=== PATIENT | male | born 1970 | race Caucasian/White ===

== ENCOUNTER 2020-03-29 12:12 | Emergency (ER) | payer OTHER ==
[~2020-03-29 12:12] MED LIST: BACTRIM DS TAB1 EACH PO
[2020-03-29] MEDS ORDERED: IBUPROFEN800 MG PO (12:23)
[2020-03-29] MEDS ORDERED: KEFLEX250 MG PO (12:23)
[2020-03-29] MEDS ORDERED: BACTRIM DS TAB1 EACH PO (12:23)
== END 2020-03-29 15:08 | disposition home or self-care (01) ==
LOC: FER 12:12
DX: L02.413 Cutaneous abscess of right upper limb (principal); F15.10 Other stimulant abuse, uncomplicated; F17.210 Nicotine dependence, cigarettes, uncomplicated
CPT/HCPCS: 87070; 87077; 87186; 87205

== ENCOUNTER 2021-01-29 22:43 | Day surgery (SDCO) | payer OTHER ==
[~2021-01-29] VITALS: Ht 177.8 cm; Wt 96.6 kg
[~2021-01-29 22:43] MED LIST changes: +IBUPROFEN800 MG PO; +KEFLEX250 MG PO
[2021-01-29 23:49] LABS: CORONAVIRUS 2019 SARS-COV-2 NEGATIVE (NEGATIVE); INFLUENZA A NAA NEGATIVE (NEGATIVE)
[2021-01-29 23:54] LABS: BASOPHIL 0.5 % (0-2); EOSINOPHIL 1.8 % (0-5); HCT 44.5 % (42.0-52.0); LYMPHOCYTE 29.8 % (15-48); MCH 27.1 pg (25.0-31.0); MCHC 31.5 g/dL (32.0-36.0); MCV 86.1 fL (78.0-100.0); MONOCYTE 7.5 % (0-12); MPV 10.8 fL (6.0-9.5); NEUTROPHIL 60.2 % (41-80); NRBC 0; PLT 258 K/uL (150-400); RBC 5.17 M/uL (4.70-6.00); RDW 14.1 % (11.5-14.0); WBC 9.3 K/uL (4.0-10.5)
[2021-01-30 00:12] LABS: LACTIC ACID 0.8 mmol/L (0.4-1.9)
[2021-01-30 00:19] LABS: ALBUMIN 3.2 g/dL (3.4-5.0); BILIRUBIN - TOTAL 0.4 mg/dL (0.2-1.0); BUN/CREAT RATIO (CALC) 16.9 RATIO; CREATININE 1.36 mg/dL (0.67-1.17); GLOBULIN (CALCULATION) 3.7 g/dL; TOTAL PROTEIN 6.9 g/dL (6.4-8.2)
[2021-01-30 03:25] LABS: AMPHETAMINES NEGATIVE (NEGATIVE); BARBITURATES NEGATIVE (NEGATIVE); ECSTASY (MDMA) NEGATIVE (NEGATIVE); MARIJUANA (THC) NEGATIVE (NEGATIVE); METHADONE NEGATIVE (NEGATIVE); OPIATES NEGATIVE (NEGATIVE)
[2021-01-30 03:26] LABS: OXYCODONE NEGATIVE (NEGATIVE)
--- NOTE | 2021-01-30 07:26 | NUR ---
WAS IN THE [facility] [address] AND LAB CAME TO ME TO EXPLAIN THAT 206 WAS GOING CRAZY. I WENT INTO THE ROOM TO ASK WHAT WAS WRONG, HE JUMPED UP AND STATED THAT HE WAS HAVING A MUSCLE SPASM, HE TOOK OFF HIS TELEMATRY AND STATED THAT IT NEEDED TO COME OFF. I WAS STANDING THERE HE TOLD ME TO GET OUT OF HIS FING FACE AND TO GET OUT OF THE ROOM. FRANKLIN AND PITO WERE MY WITNESSES TO THIS. I SHUT THE DOOR AND TOLD EVERYONE TO STAY OUT UNTIL HE CALMS DOWN. TOLD CHARGE AND HOUSE ABOUT THE SITUATION. ALSO INFORMED DR FUNK
--- NOTE | 2021-01-30 09:14 | NUR ---
WENT INTO PATIENT ROOM R/T PATIENT REFUSING TREATMENT. PATIENT WANTED THE "PAPER TO SIGN OUT," I ATTEMPTED TO EXPLAIN TO THE PATIENT THAT HE WOULD BE AT RISK FOR A MASSIVE HEART ATTACK, OR IF NOT PROPERLY EXAMINED BY OUR MEDICAL TEAM, PATIENT REPEATED TO INTERUPT ME SAYING "AINT NOTHING WRONG WITH MY HEART, I DIDN'T HAVE NO HEART ATTACK, I'M LEAVIG THIS PLACE." I REMOVED PATIENTS IV, PATIENT SIGNED AMA PAPERS AND WAS AMBULATORY FROM ROOM 206 WITH NO DISTRESS
--- NOTE | 2021-01-30 17:16 | NUR ---
01/30/21 Patient left AMA.
== END 2021-01-30 09:11 | disposition left against medical advice (07) ==
LOC: FER 22:43 → FMS 01-30 04:17
PROVIDERS: Emergency Medicine Emergency Medical Services; ADMIT Hospitalist
DX: I11.0 Hypertensive heart disease with heart failure (principal); I50.1 Left ventricular failure, unspecified; F17.210 Nicotine dependence, cigarettes, uncomplicated; F15.10 Other stimulant abuse, uncomplicated; Z20.822 Contact with and (suspected) exposure to COVID-19; I21.4 Non-ST elevation (NSTEMI) myocardial infarction; R00.0 Tachycardia, unspecified
CPT/HCPCS: 36415; 71045; 71275; 80053; 80305; 82728; 83605; 83880; 84484; 85025; 85379; 86140; 87040; 93005; 94640; 94664; 96372; G0378; J1650; J1940; J2543; J3360; J7040; Q9967; U0002

== ENCOUNTER 2021-02-03 11:29 | Inpatient (IN) | payer OTHER ==
[~2021-02-03] VITALS: Ht 177.8 cm; Wt 98.9 kg
[2021-02-03 12:45] LABS: BASOPHIL 0.5 % (0-2); EOSINOPHIL 1.4 % (0-5); HCT 46.2 % (42.0-52.0); HGB 14.6 g/dl (13.2-18.0); LYMPHOCYTE 27.4 % (15-48); MCH 27.4 pg (25.0-31.0); MCHC 31.6 g/dL (32.0-36.0); MCV 86.8 fL (78.0-100.0); MONOCYTE 7.8 % (0-12); NEUTROPHIL 62.7 % (41-80); NRBC 0; PLT 285 K/uL (150-400); RBC 5.32 M/uL (4.70-6.00); RDW 14.5 % (11.5-14.0)
[2021-02-03 12:49] LABS: INR 1.07 (0.9-1.2); PROTHROMBIN TIME 13.3 SECONDS (11.8-13.4)
[2021-02-03 12:50] LABS: PTT 29.6 SECONDS (24.4-34.7)
[2021-02-03 13:10] LABS: ALBUMIN 3.2 g/dL (3.4-5.0); BILIRUBIN - TOTAL 0.3 mg/dL (0.2-1.0); CREATININE 1.12 mg/dL (0.67-1.17); POTASSIUM 4.7 mmol/L (3.5-5.1); TOTAL PROTEIN 7.2 g/dL (6.4-8.2)
[2021-02-03 13:19] LABS: CORONAVIRUS 2019 SARS-COV-2 NEGATIVE (NEGATIVE); INFLUENZA A NAA NEGATIVE (NEGATIVE)
[2021-02-03 19:18] LABS: ECSTASY (MDMA) NEGATIVE (NEGATIVE); MARIJUANA (THC) NEGATIVE (NEGATIVE); METHADONE NEGATIVE (NEGATIVE); OPIATES NEGATIVE (NEGATIVE)
[2021-02-03 19:19] LABS: AMPHETAMINES POSITIVE (NEGATIVE); BARBITURATES NEGATIVE (NEGATIVE); OXYCODONE NEGATIVE (NEGATIVE)
[2021-02-04 07:13] LABS: BASOPHIL 0.6 % (0-2); EOSINOPHIL 1.6 % (0-5); HCT 49.2 % (42.0-52.0); HGB 15.9 g/dl (13.2-18.0); LYMPHOCYTE 26.9 % (15-48); MCH 27.2 pg (25.0-31.0); MCHC 32.3 g/dL (32.0-36.0); MCV 84.2 fL (78.0-100.0); MONOCYTE 7.6 % (0-12); NRBC 0; PLT 294 K/uL (150-400); RBC 5.84 M/uL (4.70-6.00); RDW 14.4 % (11.5-14.0); WBC 10.8 K/uL (4.0-10.5)
[2021-02-04 07:55] LABS: ALBUMIN 3.1 g/dL (3.4-5.0); BILIRUBIN - TOTAL 0.6 mg/dL (0.2-1.0); BUN/CREAT RATIO (CALC) 16.4 RATIO; CREATININE 1.22 mg/dL (0.67-1.17); GLOBULIN (CALCULATION) 3.5 g/dL; POTASSIUM 4.3 mmol/L (3.5-5.1); TOTAL PROTEIN 6.6 g/dL (6.4-8.2)
--- NOTE | 2021-02-04 14:15 | NUR ---
[facility] will accept patient at discharge. They prefer a 24 hour notice of discharge. [facility] will provide transportation.
[2021-02-05 07:27] LABS: BASOPHIL 0.6 % (0-2); EOSINOPHIL 1.7 % (0-5); HCT 53.9 % (42.0-52.0); HGB 17.3 g/dl (13.2-18.0); LYMPHOCYTE 24.3 % (15-48); MCH 26.8 pg (25.0-31.0); MCHC 32.1 g/dL (32.0-36.0); MCV 83.4 fL (78.0-100.0); MONOCYTE 7.7 % (0-12); MPV 10.7 fL (6.0-9.5); NEUTROPHIL 65.5 % (41-80); NRBC 0; PLT 340 K/uL (150-400); RBC 6.46 M/uL (4.70-6.00); RDW 14.6 % (11.5-14.0); WBC 12.5 K/uL (4.0-10.5)
[2021-02-05 07:55] LABS: ALBUMIN 3.1 g/dL (3.4-5.0); BILIRUBIN - TOTAL 0.7 mg/dL (0.2-1.0); BUN/CREAT RATIO (CALC) 18.1 RATIO; CREATININE 1.27 mg/dL (0.67-1.17); GLOBULIN (CALCULATION) 4.3 g/dL; MAGNESIUM 2.3 mg/dL (1.8-2.4); POTASSIUM 4.3 mmol/L (3.5-5.1); TOTAL PROTEIN 7.4 g/dL (6.4-8.2)
[2021-02-05 08:11] LABS: CKMB 2.1 ng/mL (0.0-3.6)
--- NOTE | 2021-02-05 10:59 | NUR ---
02/05/21 Mr. Kearney will be transferred to [facility] for a cath. ISABEL Nunes, was notified with patient's permission.
[2021-02-06 05:09] LABS: HBSAG SCREEN Negative (Negative); HEP A AB, IGM Negative (Negative); HEP B CORE AB, IGM Negative (Negative); HEP C VIRUS AB <0.1 (0.0-0.9)
[2021-02-06 05:58] LABS: BASOPHIL 0.7 % (0-2); EOSINOPHIL 2.6 % (0-5); HCT 53.7 % (42.0-52.0); HGB 17.3 g/dl (13.2-18.0); LYMPHOCYTE 29.1 % (15-48); MCH 27.6 pg (25.0-31.0); MCHC 32.2 g/dL (32.0-36.0); MCV 85.6 fL (78.0-100.0); MONOCYTE 8.5 % (0-12); MPV 10.4 fL (6.0-9.5); NEUTROPHIL 58.8 % (41-80); NRBC 0; PLT 325 K/uL (150-400); RBC 6.27 M/uL (4.70-6.00); RDW 14.6 % (11.5-14.0); WBC 12.2 K/uL (4.0-10.5)
[2021-02-06 07:02] LABS: BILIRUBIN - TOTAL 0.4 mg/dL (0.2-1.0); BUN/CREAT RATIO (CALC) 16.9 RATIO; CREATININE 1.36 mg/dL (0.67-1.17); POTASSIUM 4.8 mmol/L (3.5-5.1)
[2021-02-06 07:09] LABS: HIV SCREEN 4TH GENERATION WRFX Non Reactive (Non Reactive)
[2021-02-06] MEDS ORDERED: FUROSEMIDE 40MG40 MG PO (08:20)
[2021-02-06] MEDS ORDERED: LOPRESSOR25 MG PO (08:20)
[2021-02-06] MEDS ORDERED: ZESTRIL2.5 MG PO (08:20)
--- NOTE | 2021-02-06 08:55 | NUR ---
REPORT CALLED TO [facility] AT THIS TIME, PATIENT AWAITING EMS AT THIS TIME.
== END 2021-02-06 09:44 | disposition other institution (70) | DRG 280 ==
LOC: FER 11:29 → FMS 15:01
PROVIDERS: Emergency Medicine; Family Medicine; Internal Medicine Cardiovascular Disease; Nurse Practitioner; ADMIT Internal Medicine
DX: I11.0 Hypertensive heart disease with heart failure (principal); I21.4 Non-ST elevation (NSTEMI) myocardial infarction; I50.23 Acute on chronic systolic (congestive) heart failure; I42.9 Cardiomyopathy, unspecified; F17.210 Nicotine dependence, cigarettes, uncomplicated; Z20.822 Contact with and (suspected) exposure to COVID-19; F15.90 Other stimulant use, unspecified, uncomplicated; Z91.14 Patient's other noncompliance with medication regimen; Z98.890 Other specified postprocedural states; Z82.49 Family history of ischemic heart disease and other diseases of the circulatory system
CPT/HCPCS: 36415; 71045; 80053; 80074; 80305; 82553; 83735; 83880; 84484; 85025; 85379; 85610; 85730; 87389; 93005; 94640; 94760; J1650; J1940; U0002

== ENCOUNTER 2021-02-16 20:10 | Inpatient (IN) | payer OTHER ==
[~2021-02-16] VITALS: Ht 177.8 cm; Wt 100.8 kg
[~2021-02-16 20:10] MED LIST changes: +FUROSEMIDE 40MG40 MG PO; +LOPRESSOR25 MG PO; +ZESTRIL2.5 MG PO
[2021-02-16 20:50] LABS: BASOPHIL 0.5 % (0-2); EOSINOPHIL 1.2 % (0-5); HCT 44.6 % (42.0-52.0); HGB 13.8 g/dl (13.2-18.0); LYMPHOCYTE 26.8 % (15-48); MCHC 30.9 g/dL (32.0-36.0); MCV 87.1 fL (78.0-100.0); MONOCYTE 7.7 % (0-12); MPV 11.1 fL (6.0-9.5); NEUTROPHIL 63.4 % (41-80); NRBC 0; PLT 272 K/uL (150-400); RBC 5.12 M/uL (4.70-6.00); RDW 13.9 % (11.5-14.0); WBC 12.7 K/uL (4.0-10.5)
[2021-02-16 21:07] LABS: BUN/CREAT RATIO (CALC) 15.4 RATIO; CREATININE 1.23 mg/dL (0.67-1.17); POTASSIUM 4.5 mmol/L (3.5-5.1)
[2021-02-16 22:08] LABS: CORONAVIRUS 2019 SARS-COV-2 NEGATIVE (NEGATIVE); INFLUENZA A NAA NEGATIVE (NEGATIVE)
--- NOTE | 2021-02-17 14:38 | NUR ---
02/17/21 Patient left AMA.
--- NOTE | 2021-02-17 21:19 | NUR ---
1132: PT LEFT AMA, MD SANDHU AND TANVIR TAPIA APRN NOTIFIED, PT STATES THAT HE WANTS TO KEEP HIS APPOINTMENT WITH [facility] TO GET A SECOND OPINION ON HIS HEALTH STATUS. PT HAS BEEN EDUCATED ON THE IMPORTANCE OF NOT USING ANY ILLEGAL SUBSTANCES AND THE CRITICAL CONDITION THAT HE IS IN. PT VERBALIZED UNDERSTANDING AND ADAMANT ABOUT LEAVING, APPROPRIATE DOCUMENTS SIGNED FOR AMA. REGISTERED VETERINARY TECHNICIAN NOTIFIED OF PT AMA.
== END 2021-02-17 11:32 | disposition left against medical advice (07) | DRG 280 ==
LOC: FER 20:10 → FTCU 22:39
PROVIDERS: Nurse Practitioner Family; ADMIT Internal Medicine
DX: I11.0 Hypertensive heart disease with heart failure (principal); I50.43 Acute on chronic combined systolic (congestive) and diastolic (congestive) heart failure; I21.4 Non-ST elevation (NSTEMI) myocardial infarction; F15.10 Other stimulant abuse, uncomplicated; Z20.822 Contact with and (suspected) exposure to COVID-19; Z91.14 Patient's other noncompliance with medication regimen; I42.9 Cardiomyopathy, unspecified; F17.210 Nicotine dependence, cigarettes, uncomplicated; I25.2 Old myocardial infarction; Z98.890 Other specified postprocedural states
CPT/HCPCS: 36415; 71045; 71275; 80048; 83880; 84484; 85025; 85379; 93005; J1650; J1940; Q9967; U0002

== ENCOUNTER 2021-02-25 18:41 | Emergency (ER) | payer OTHER | END 2021-02-25 21:41 | disposition left against medical advice (07) | LOC: FER 18:41 | DX: R07.9 Chest pain, unspecified (principal); R11.0 Nausea; Z53.8 Procedure and treatment not carried out for other reasons | CPT/HCPCS: 93005 ==

== ENCOUNTER 2021-08-21 18:56 | Emergency (ER) | payer OTHER ==
[~2021-08-21 18:56] MED LIST changes: +LASIX80 MG PO
[2021-08-21 19:49] LABS: BASOPHIL 0.7 % (0-2); EOSINOPHIL 1.8 % (0-5); HCT 42.5 % (42.0-52.0); HGB 13.7 g/dl (13.2-18.0); LYMPHOCYTE 21.5 % (15-48); MCH 27.1 pg (25.0-31.0); MCHC 32.2 g/dL (32.0-36.0); MONOCYTE 9.3 % (0-12); MPV 11.1 fL (6.0-9.5); NEUTROPHIL 66.3 % (41-80); NRBC 0; PLT 205 K/uL (150-400); RBC 5.06 M/uL (4.70-6.00); RDW 15.3 % (11.5-14.0); WBC 8.3 K/uL (4.0-10.5)
[2021-08-21 20:09] LABS: ALBUMIN 2.8 g/dL (3.4-5.0); BILIRUBIN - TOTAL 0.8 mg/dL (0.2-1.0); BUN/CREAT RATIO (CALC) 15.2 RATIO; CREATININE 1.05 mg/dL (0.67-1.17); GLOBULIN (CALCULATION) 3.8 g/dL; POTASSIUM 3.6 mmol/L (3.5-5.1); TOTAL PROTEIN 6.6 g/dL (6.4-8.2)
[2021-08-21 20:31] LABS: BILIRUBIN NEGATIVE (NEGATIVE); BLOOD NEGATIVE Ery/uL (NEGATIVE); CLARITY CLEAR (CLEAR); COLOR YELLOW (YELLOW); GLUCOSE (U) 3+ mg/dL (NORMAL); LEUKOCYTES NEGATIVE Leu/uL (NEGATIVE); NITRITE NEGATIVE (NEGATIVE); PROTEIN NEGATIVE (NEGATIVE); SPECIFIC GRAVITY 1.015 (1.001-1.030); UROBILINOGEN 0.2 mg/dL (0.2-1.0)
[2021-08-21 20:37] LABS: AMPHETAMINES NEGATIVE (NEGATIVE); BARBITURATES NEGATIVE (NEGATIVE); ECSTASY (MDMA) NEGATIVE (NEGATIVE); MARIJUANA (THC) NEGATIVE (NEGATIVE); METHADONE NEGATIVE (NEGATIVE); OPIATES NEGATIVE (NEGATIVE); OXYCODONE NEGATIVE (NEGATIVE)
== END 2021-08-21 21:45 | disposition home or self-care (01) ==
LOC: FER 18:56
PROVIDERS: Internal Medicine
DX: E11.65 Type 2 diabetes mellitus with hyperglycemia (principal); F15.10 Other stimulant abuse, uncomplicated; I11.0 Hypertensive heart disease with heart failure; I50.9 Heart failure, unspecified; F17.210 Nicotine dependence, cigarettes, uncomplicated
CPT/HCPCS: 36415; 80053; 80305; 81003; 82009; 83690; 84484; 85025; 93005; J7120

== ENCOUNTER 2021-08-29 01:38 | Emergency (ER) | payer OTHER ==
[2021-08-29 03:08] LABS: BASOPHIL 0.5 % (0-2); EOSINOPHIL 0.8 % (0-5); HCT 46.2 % (42.0-52.0); HGB 14.4 g/dl (13.2-18.0); LYMPHOCYTE 28.1 % (15-48); MCH 26.8 pg (25.0-31.0); MCHC 31.2 g/dL (32.0-36.0); MCV 85.9 fL (78.0-100.0); MONOCYTE 8.1 % (0-12); MPV 10.9 fL (6.0-9.5); NEUTROPHIL 62.2 % (41-80); NRBC 0; PLT 221 K/uL (150-400); RBC 5.38 M/uL (4.70-6.00); RDW 15.5 % (11.5-14.0); WBC 10.2 K/uL (4.0-10.5)
[2021-08-29 03:36] LABS: ALBUMIN 2.8 g/dL (3.4-5.0); BILIRUBIN - TOTAL 1.2 mg/dL (0.2-1.0); BUN/CREAT RATIO (CALC) 16.7 RATIO; CREATININE 1.26 mg/dL (0.67-1.17); GLOBULIN (CALCULATION) 4.1 g/dL; POTASSIUM 3.8 mmol/L (3.5-5.1); TOTAL PROTEIN 6.9 g/dL (6.4-8.2)
[2021-08-29 04:29] LABS: CORONAVIRUS 2019 SARS-COV-2 NEGATIVE (NEGATIVE); INFLUENZA A NAA NEGATIVE (NEGATIVE)
[2021-08-29] MEDS ORDERED: VIBRAMYCIN100 MG PO (04:38)
[2021-08-29] MEDS ORDERED: PREDNISONE 20MG20 MG PO (04:38)
[2021-08-29] MEDS ORDERED: LASIX40 MG PO (04:38)
[2021-08-29] MEDS ORDERED: VENTOLIN HFA IN18 GM INH (04:38)
== END 2021-08-29 04:58 | disposition home or self-care (01) ==
LOC: FER 01:38
PROVIDERS: Internal Medicine
DX: I11.0 Hypertensive heart disease with heart failure (principal); I50.9 Heart failure, unspecified; J44.1 Chronic obstructive pulmonary disease with (acute) exacerbation; E11.9 Type 2 diabetes mellitus without complications; F17.210 Nicotine dependence, cigarettes, uncomplicated; Z20.822 Contact with and (suspected) exposure to COVID-19
CPT/HCPCS: 36415; 71045; 80053; 83880; 84145; 84484; 85025; 93005; 94640; 94664; U0002

== ENCOUNTER 2021-09-24 00:15 | Emergency (ER) | payer OTHER ==
[~2021-09-24 00:15] MED LIST changes: +LASIX40 MG PO; +PREDNISONE 20MG20 MG PO; +VENTOLIN HFA IN18 GM INH; +VIBRAMYCIN100 MG PO
[2021-09-24 00:54] LABS: BASOPHIL 0.5 % (0-2); EOSINOPHIL 1.7 % (0-5); HCT 44.9 % (42.0-52.0); HGB 14.3 g/dl (13.2-18.0); LYMPHOCYTE 25.3 % (15-48); MCHC 31.8 g/dL (32.0-36.0); MCV 84.9 fL (78.0-100.0); MONOCYTE 16.8 % (0-12); MPV 11.3 fL (6.0-9.5); NEUTROPHIL 55.3 % (41-80); NRBC 0; PLT 252 K/uL (150-400); RBC 5.29 M/uL (4.70-6.00); RDW 15.4 % (11.5-14.0)
[2021-09-24 01:12] LABS: ALBUMIN 2.7 g/dL (3.4-5.0); BILIRUBIN - TOTAL 0.9 mg/dL (0.2-1.0); BUN/CREAT RATIO (CALC) 20.9 RATIO; CREATININE 1.39 mg/dL (0.67-1.17); GLOBULIN (CALCULATION) 3.4 g/dL; POTASSIUM 4.1 mmol/L (3.5-5.1); TOTAL PROTEIN 6.1 g/dL (6.4-8.2)
[2021-09-24 01:41] LABS: CORONAVIRUS 2019 SARS-COV-2 NEGATIVE (NEGATIVE); INFLUENZA A NAA NEGATIVE (NEGATIVE)
== END 2021-09-24 04:25 | disposition home or self-care (01) ==
LOC: FER 00:15
PROVIDERS: Emergency Medicine
DX: I11.0 Hypertensive heart disease with heart failure (principal); I50.9 Heart failure, unspecified; E11.9 Type 2 diabetes mellitus without complications; F17.200 Nicotine dependence, unspecified, uncomplicated; Z79.84 Long term (current) use of oral hypoglycemic drugs; Z20.822 Contact with and (suspected) exposure to COVID-19
CPT/HCPCS: 36415; 71045; 80053; 83880; 84484; 85025; 93005; J1940; U0002

== ENCOUNTER 2021-11-08 10:04 | Emergency (ER) | payer OTHER ==
[~2021-11-08 10:04] MED LIST changes: +METFORMIN HCL500 M3 PO; +METFORMIN HCL500 MG PO; +PRINIVIL20 MG PO
[2021-11-08 11:05] LABS: BASOPHIL 0.6 % (0-2); EOSINOPHIL 2.6 % (0-5); HCT 44.3 % (42.0-52.0); HGB 14.1 g/dl (13.2-18.0); LYMPHOCYTE 24.5 % (15-48); MCH 26.7 pg (25.0-31.0); MCHC 31.8 g/dL (32.0-36.0); MCV 83.9 fL (78.0-100.0); MONOCYTE 8.1 % (0-12); MPV 11.8 fL (6.0-9.5); NEUTROPHIL 63.9 % (41-80); NRBC 0; PLT 211 K/uL (150-400); RBC 5.28 M/uL (4.70-6.00); RDW 16.9 % (11.5-14.0); WBC 9.4 K/uL (4.0-10.5)
[2021-11-08 11:16] LABS: INR 1.32 (0.9-1.2); PTT 31.3 SECONDS (24.9-34.6)
[2021-11-08 11:35] LABS: MAGNESIUM 1.6 mg/dL (1.8-2.4)
[2021-11-08 11:37] LABS: ALBUMIN 3.3 g/dL (3.4-5.0); BILIRUBIN - TOTAL 0.8 mg/dL (0.2-1.0); CREATININE 1.21 mg/dL (0.67-1.17); POTASSIUM 4.6 mmol/L (3.5-5.1); TOTAL PROTEIN 6.3 g/dL (6.4-8.2)
== END 2021-11-08 16:31 | disposition home or self-care (01) ==
LOC: FER 10:04
PROVIDERS: Emergency Medicine
DX: I11.0 Hypertensive heart disease with heart failure (principal); I50.9 Heart failure, unspecified; E11.9 Type 2 diabetes mellitus without complications; F17.200 Nicotine dependence, unspecified, uncomplicated; Z79.899 Other long term (current) drug therapy
CPT/HCPCS: 36415; 71045; 71275; 80053; 83735; 83880; 84145; 84484; 85025; 85610; 85730; 93005; 94640; J1940; J3475; Q9967

== ENCOUNTER 2021-11-11 08:53 | Emergency (ER) | payer OTHER ==
[2021-11-11 09:18] LABS: BASOPHIL 0.7 % (0-2); EOSINOPHIL 1.4 % (0-5); HCT 45.7 % (42.0-52.0); HGB 14.2 g/dl (13.2-18.0); MCH 26.3 pg (25.0-31.0); MCHC 31.1 g/dL (32.0-36.0); MCV 84.8 fL (78.0-100.0); NEUTROPHIL 49.4 % (41-80); NRBC 0; PLT 272 K/uL (150-400); RBC 5.39 M/uL (4.70-6.00); RDW 17.2 % (11.5-14.0)
[2021-11-11 09:21] LABS: LYMPHOCYTE 39.2 % (15-48)
[2021-11-11 09:45] LABS: INR 1.25 (0.9-1.2); PROTHROMBIN TIME 15.3 SECONDS (11.9-13.9); PTT 30.8 SECONDS (24.9-34.6)
[2021-11-11 09:58] LABS: ACETAMINOPHEN (TYLENOL) < 2.0 ug/mL (10.0-30.0); BUN 21 mg/dL (7-18); BUN/CREAT RATIO (CALC) 15.6 RATIO; CHLORIDE 101 mmol/L (98-107); CO2 (BICARBONATE) 27 mmol/L (21-32); CREATININE 1.35 mg/dL (0.67-1.17); GLUCOSE 186 mg/dL (74-106); LACTIC ACID 3.5 mmol/L (0.4-1.9); POTASSIUM 5.1 mmol/L (3.5-5.1)
[2021-11-11 11:05] LABS: BILIRUBIN NEGATIVE (NEGATIVE); BLOOD TRACE-INTACT Ery/uL (NEGATIVE); CLARITY CLEAR (CLEAR); COLOR YELLOW (YELLOW); GLUCOSE (U) NORMAL (NORMAL); LEUKOCYTES NEGATIVE Leu/uL (NEGATIVE); NITRITE NEGATIVE (NEGATIVE); PROTEIN 2+ mg/dL (NEGATIVE); SPECIFIC GRAVITY 1.015 (1.001-1.030); UROBILINOGEN 0.2 mg/dL (0.2-1.0); pH 5.5 (5.0-9.0)
[2021-11-11 11:10] LABS: AMPHETAMINES NEGATIVE (NEGATIVE); BARBITURATES NEGATIVE (NEGATIVE); ECSTASY (MDMA) NEGATIVE (NEGATIVE); MARIJUANA (THC) NEGATIVE (NEGATIVE); METHADONE NEGATIVE (NEGATIVE); OPIATES NEGATIVE (NEGATIVE); OXYCODONE NEGATIVE (NEGATIVE)
[2021-11-11 11:13] LABS: URINARY RBC RARE
[2021-11-11 11:14] LABS: MUCOUS TRACE; SQUAMOUS EPITHELIAL CELLS RARE
== END 2021-11-11 13:58 | disposition other institution (70) ==
LOC: FER 08:53
PROVIDERS: Emergency Medicine
DX: G93.1 Anoxic brain damage, not elsewhere classified (principal); J18.9 Pneumonia, unspecified organism; I13.0 Hypertensive heart and chronic kidney disease with heart failure and stage 1 through stage 4 chronic kidney disease, or unspecified chronic kidney disease; I50.9 Heart failure, unspecified; N18.9 Chronic kidney disease, unspecified; I25.2 Old myocardial infarction; F17.200 Nicotine dependence, unspecified, uncomplicated; Z20.822 Contact with and (suspected) exposure to COVID-19
CPT/HCPCS: 31500; 36415; 36600; 70450; 71045; 80048; 80305; 81001; 82553; 82803; 83605; 84484; 85025; 85610; 85730; 87040; 93005; 96361; 96365; 96367; 96376; G0480; J2250; J2543; J2704; Q9967; U0002